=== PATIENT | male | born 1965 | race Two or more races ===

== ENCOUNTER 2023-06-16 05:17 | Day surgery (SDC) | payer OTHER ==
[~2023-06-16 05:17] MED LIST: AMLODIP PO; CARVEDILOL3.125 MG PO; CRESTOR20 MG PO; LORAZEPAM0.5 MG PO; LOSARTAN POTASS25 MG PO; MIRTAZAPINE15 M1 PO; VAZALORE81 MG PO
== END 2023-06-16 14:00 | disposition home or self-care (01) ==
LOC: CIR.AMB 05:17
PROVIDERS: ATTEND Colon & Rectal Surgery
DX: C20 Malignant neoplasm of rectum (principal); I10 Essential (primary) hypertension; Z20.822 Contact with and (suspected) exposure to COVID-19; E78.5 Hyperlipidemia, unspecified; Z88.8 Allergy status to other drugs, medicaments and biological substances

== ENCOUNTER → 2023-10-13 | Day surgery (SDC) | payer OTHER ==
[~2023-10-13] MED LIST changes: +DIPHENHYDRAMINE HCL 50 MG/ML VIAL 1ML IV ONE; +MIDAZOLAM HCL 2 MG/2 ML VIAL IV ONE; +fentaNYL CITRATE 50 MCG/ML AMPUL IV PUSH ONE
== END | disposition home or self-care (01) ==
LOC: ADM 10-06 13:15 → AMB-ENDOS 05:19
PROVIDERS: ATTEND Colon & Rectal Surgery
DX: C20 Malignant neoplasm of rectum (principal); Z88.8 Allergy status to other drugs, medicaments and biological substances; K64.8 Other hemorrhoids

== ENCOUNTER 2024-05-30 05:00 | Day surgery (SDC) | payer OTHER ==
[~2024-05-30 05:00] MED LIST changes: +AMLODIPINE-OLM1 EAC2; -DIPHENHYDRAMINE HCL 50 MG/ML VIAL 1ML IV ONE; -MIDAZOLAM HCL 2 MG/2 ML VIAL IV ONE; +TAMSULOSIN HCL0.4 MG; -fentaNYL CITRATE 50 MCG/ML AMPUL IV PUSH ONE
[2024-05-30] MEDS ORDERED: MIDAZOLAM HCL 2 MG/2 ML VIAL IV ONE (11:00)
[2024-05-30] MEDS ORDERED: DIPHENHYDRAMINE HCL 50 MG/ML VIAL 1ML IV ONE (11:00)
[2024-05-30] MEDS ORDERED: NALOXONE HCL 0.4 MG/ML AMPUL IV STA (11:00)
[2024-05-30] MEDS ORDERED: fentaNYL CITRATE 50 MCG/ML AMPUL IV PUSH ONE (11:00)
== END 2024-05-30 12:05 | disposition home or self-care (01) ==
LOC: AMB-ENDOS 05:00
PROVIDERS: ATTEND Colon & Rectal Surgery
DX: C20 Malignant neoplasm of rectum (principal); Z88.8 Allergy status to other drugs, medicaments and biological substances

== ENCOUNTER 2024-08-15 10:34 | Inpatient (IN) | payer OTHER ==
[~2024-08-15] VITALS: Ht 66 cm; Wt 65.8 kg
[2024-08-15 11:11] VITALS: BP 135/75
[2024-08-23] MEDS ORDERED: CEFTRIAXONE SODIUM 2,000 MG VIAL ONE (13:24)
[2024-08-23] MEDS ORDERED: METRONIDAZOLE/SODIUM CHLORIDE 500 MG/100 ML PIGGYBACK IV ONE (13:24)
[2024-08-23] MEDS ORDERED: BUPIVACAINE HCL 30 ML VIAL IJ ONE (15:15)
[2024-08-23] MEDS ORDERED: LIDOCAINE HCL 1%/EPINEPHRINE 20ML VIAL IJ ONE (15:15)
[2024-08-23] MEDS ORDERED: POLYETHYLENE GLYCOL 3350 17 GM BLIST.PACK PO SCH (17:00)
[2024-08-23] MEDS ORDERED: ONDANSETRON HCL 2 MG/ML VIAL IV PRN (17:00)
[2024-08-23] MEDS ORDERED: METOCLOPRAMIDE HCL 5 MG/ML VIAL IV SCH (17:00)
[2024-08-23] MEDS ORDERED: GABAPENTIN 300 MG CAPSULE PO SCH (17:00)
[2024-08-23] MEDS ORDERED: RINGERS SOLUTION,LACTATED 1,000 ML IV SCH (17:00)
[2024-08-23] MEDS ORDERED: HYOSCYAMINE SULFATE 0.125 MG TAB.SUBL SL SCH (17:00)
[2024-08-23] MEDS ORDERED: MORPHINE SULFATE 4 MG/ML CARTRIDGE IV PRN (17:00)
[2024-08-23] MEDS ORDERED: OxyCODONE HCL/APAP UD (PERCOCET) PO PRN (17:00)
[2024-08-23 17:55] LABS: HEMATOCRIT 42.7 % (39.0-48.0); MEAN CELL VOLUME 97.3 fL (80.0-100.00); MEAN CORPUSCULAR HEMOGLOBIN 31.9 pg (27.00-32.0); MEAN CORPUSCULAR HGB CONC 32.8 g/dl (32.0-36.0); PLATELET COUNT 153 K/uL (150-450); RED BLOOD COUNT 4.39 M/uL (4.00-6.00); RED CELL DISTRIBUTION WIDTH 13.5 % (11.5-14.5)
[2024-08-23 18:21] LABS: ALBUMIN 3.6 gm/dL (3.4-5.0); CALCIUM 8.8 mg/dL (8.5-10.1); CREATININE SERUM 0.81 mg/dL (0.70-1.30); GFR 97.87; PHOSPHOROUS 3.5 mg/dL (2.5-4.9)
[2024-08-23] MEDS ORDERED: FAMOTIDINE/PF 20 MG/2 ML VIAL IV SCH (21:00)
[2024-08-23 21:30] VITALS: BP 119/73; O2SAT 97
[2024-08-24 00:29] VITALS: BP 132/68; O2SAT 100
[2024-08-24 07:06] LABS: HEMATOCRIT 42.5 % (39.0-48.0); HEMOGLOBIN 14.2 g/dL (13-16.00); MEAN CELL VOLUME 96.9 fL (80.0-100.00); MEAN CORPUSCULAR HEMOGLOBIN 32.4 pg (27.00-32.0); MEAN CORPUSCULAR HGB CONC 33.5 g/dl (32.0-36.0); PLATELET COUNT 151 K/uL (150-450); RED BLOOD COUNT 4.38 M/uL (4.00-6.00); RED CELL DISTRIBUTION WIDTH 13.4 % (11.5-14.5)
[2024-08-24 07:44] LABS: ALBUMIN 3.6 gm/dL (3.4-5.0); CREATININE SERUM 0.72 mg/dL (0.70-1.30); GFR 112.12; MAGNESIUM 2.1 mg/dL (1.8-2.4); PHOSPHOROUS 3.5 mg/dL (2.5-4.9); POTASSIUM 4.38 mEq/L (3.5-5.1)
[2024-08-24 08:00] VITALS: BP 155/78; O2SAT 100
[2024-08-24] MEDS ORDERED: LACTULOSE 20 G/30 ML BLIST.PACK PO SCH (09:00)
[2024-08-24] MEDS ORDERED: LACTOBACILLUS ACIDOPHILUS 1 CAP CAP PO SCH (09:00)
[2024-08-24 16:30] VITALS: BP 127/77; O2SAT 100
[2024-08-24] MEDS ORDERED: CARVEDILOL 3.125 MG TABLET PO SCH (17:00)
[2024-08-24] MEDS ORDERED: ENOXAPARIN SODIUM 40 MG/0.4 ML SYRINGE SUBCUTANEO SCH (17:00)
[2024-08-25 04:14] VITALS: BP 101/63; O2SAT 98
[2024-08-25] MEDS ORDERED: LOSARTAN/HYDROCHLOROTHIAZIDE 1 UDTAB TABLET PO SCH (09:00)
[2024-08-25 09:40] VITALS: BP 136/67; O2SAT 99
[2024-08-25 16:15] VITALS: BP 111/60; O2SAT 100
[2024-08-25] MEDS ORDERED: AMLODIPINE BESYLATE 2.5 MG TABLET PO SCH (17:00)
== END 2024-08-25 20:38 | disposition home or self-care (01) | DRG 331 ==
LOC: O/R 08-23 05:12 → SURG 08-23 05:12 → SURH 08-23 10:45 → SURG 08-23 16:12
PROVIDERS: ADMIT Colon & Rectal Surgery; ATTEND Colon & Rectal Surgery
PROC: 0DBB4ZZ Excision of Ileum, Percutaneous Endoscopic Approach (ICD-10-PCS; principal; 2024-08-23 10:45)
DX: C20 Malignant neoplasm of rectum (principal)